=== PATIENT | male | born 1940 | race African-American/Black ===

== ENCOUNTER 2021-07-08 22:31 | Inpatient (IN) | payer MEDICARE, OTHER ==
[~2021-07-08] VITALS: Ht 188 cm; Wt 75.3 kg
[~2021-07-08 22:31] MED LIST: *NO ASPIRIN X 24 HOURS XX SCH; ETOMIDATE 2MG/ML 10ML VIAL IV ONE; SUCCINYLCHOLINE CHLORIDE 200MG/10ML IV ONE
[2021-07-08] MEDS ORDERED: ETOMIDATE 2MG/ML 10ML VIAL IV ONE (23:15)
[2021-07-08] MEDS ORDERED: SUCCINYLCHOLINE CHLORIDE 200MG/10ML IV ONE (23:15)
[2021-07-08] MEDS ORDERED: IOHEXOL-350 100 ML BOTTLE ONE (23:34)
[2021-07-08 23:41] LABS: BASOPHILS % 0.5 % (0.0-2.0); EOSINOPHILS % 1.6 % (0.0-5.0); HEMATOCRIT. 38.2 % (42.0-52.0); HEMOGLOBIN. 12.7 g/dL (14.0-18.0); LYMPHOCYTES % 12.1 % (20.0-50.0); MEAN CORPUSCULAR HEMOGLOBIN 31.1 pg (28.0-32.0); MEAN CORPUSCULAR VOLUME 93.5 fL (80.0-94.0); MEAN PLATELET VOLUME 7.8 fl (7.4-10.4); MONOCYTES % 4.8 % (2.0-8.0); PLATELET 218 x1000/uL (130-400); RED BLOOD CELL COUNT 4.09 mill/uL (4.7-6.1); RED CELL DISTRIBUTION WIDTH 12.6 % (11.6-14.6)
[2021-07-09] VITALS (35 sets, daily range): BP systolic 81–159; BP diastolic 45–79
[2021-07-09 00:01] LABS: CHLORIDE 107 mEq/L (98-107)
[2021-07-09 00:05] LABS: ETHANOL BLOOD < 10 mg/dL
[2021-07-09] MEDS ORDERED: ALTEPLASE IV NR (00:15)
[2021-07-09] MEDS ORDERED: ALTEPLASE 100MG/VIAL IV NR (00:15)
[2021-07-09] MEDS ORDERED: CONTAINER EMPTY IV NR (00:15)
[2021-07-09] MEDS ORDERED: MIDAZOLAM HCL 2 MG/2 ML VIAL IV ONE (00:15)
[2021-07-09 00:56] LABS: BG BASE EXCESS 1.8 mmol/L (-2.0-2.0); BG CARBOXYHEMOGLOBIN 0.6 % (0.5-1.5); BG DEOXYHEMOGLOBIN 2.3 % (0.0-5.0); BG FRACTION INSPIRED OXYGEN 35; BG HCO3 ACT 28.5 mmol/L (22.0-26.0); BG METHEMOGLOBIN 0.3 % (0.0-1.5); BG OXYGEN SATURATION 97.7 % (92.0-98.5); BG OXYHEMOGLOBIN 96.8 % (94.0-97.0); BG PCO2 53.6 mmHg (35.0-45.0); BG PH 7.344 (7.350-7.450); BG PO2 101.4 mmHg (75.0-100.0); BG SAMPLE SITE RIGHT RADIAL; BG TOTAL HEMOGLOBIN 13.5 g/dL (12.0-18.0); BG VENT MODE VENT - AC
[2021-07-09] MEDS ORDERED: SODIUM CHLORIDE 0.9% 1,000 ML IV ONE ×2 (02:15→04:30)
[2021-07-09] MEDS ORDERED: IOHEXOL-300 100 ML BOTTLE ONE (03:15)
[2021-07-09] MEDS ORDERED: CEFTRIAXONE 1 G PREMIX 50 ML IV ONE (03:30)
[2021-07-09] MEDS ORDERED: DOXYCYCLINE HYCLATE 100 MG/VIAL IV ONE (03:30)
[2021-07-09] MEDS: MIDAZOLAM HCL 100 MG in SODIUM CHLORIDE 0.9% 100 ML IV PRN ×2 (03:44→17:19)
[2021-07-09] MEDS ORDERED: DOXYCYCLINE 100MG in DEXTROSE 5% WATER 100ML IV NR (04:00)
[2021-07-09 05:09] LABS: HEMATOCRIT 27.8 % (42.0-52.0); HEMOGLOBIN 9.2 g/dL (14.0-18.0)
[2021-07-09] MEDS ORDERED: ACETAMINOPHEN 650MG SUPP PR PRN (06:15)
[2021-07-09] MEDS: NOREPINEPHRINE 8 MG in DEXTROSE 5% WATER 250 ML IV PRN ×2 (06:55→11:01)
[2021-07-09] MEDS: DEXT 5%/0.45% NACL 1000ML 1,000 ML IV SCH ×2 (07:09→20:21)
[2021-07-09] MEDS: PANTOPRAZOLE SODIUM 40 MG/VIAL IV SCH (09:16)
[2021-07-09] MEDS ORDERED: PIPERACILLIN/TAZ 3.375G PREMIX 50 ML IV SCH (14:00)
[2021-07-09] MEDS: FENTANYL CITRATE 2,500 MCG in SODIUM CHLORIDE 0.9% 200 ML IV PRN (14:04)
[2021-07-09] MEDS ORDERED: IPRATROPIUM/ALBUTEROL 0.5-3(2.5)MG/3ML NEB HHN PRN (14:30)
[2021-07-09] MEDS: IPRATROPIUM/ALBUTEROL 0.5-3(2.5)MG/3ML NEB HHN SCH ×2 (14:54→21:28)
[2021-07-09 22:13] LABS: INR 1.2; PARTIAL THROMBOPLASTIN TIME 30.4 sec (23.4-31.0); PROTHROMBIN TIME 12.5 sec (9.6-11.0)
[2021-07-10] VITALS (99 sets, daily range): BP systolic 73–152; BP diastolic 40–89
[2021-07-10] MEDS: PIPERACILLIN/TAZOBACTAM 3.375G in DEXT 5% WATER 50ML IV SCH ×2 (00:03→06:25)
[2021-07-10] MEDS: NOREPINEPHRINE 8 MG in DEXTROSE 5% WATER 250 ML IV PRN (00:36)
[2021-07-10] MEDS: IPRATROPIUM/ALBUTEROL 0.5-3(2.5)MG/3ML NEB HHN SCH ×4 (02:17→20:01)
[2021-07-10 05:53] LABS: HEMATOCRIT. 25.9 % (42.0-52.0); HEMOGLOBIN. 8.7 g/dL (14.0-18.0); MEAN CORPUSCULAR HEMOGLOBIN 31.7 pg (28.0-32.0); MEAN PLATELET VOLUME 8.5 fl (7.4-10.4); PLATELET 155 x1000/uL (130-400); RED BLOOD CELL COUNT 2.76 mill/uL (4.7-6.1)
[2021-07-10 06:21] LABS: CHLORIDE 108 mEq/L (98-107)
[2021-07-10 06:38] LABS: LDL CHOLESTEROL 40 mg/dL (5-100)
[2021-07-10 06:40] LABS: HDL CHOLESTEROL 39 mg/dL (40-59)
[2021-07-10 08:10] LABS: BG BASE EXCESS -0.9 mmol/L (-2.0-2.0); BG CARBOXYHEMOGLOBIN 0.2 % (0.5-1.5); BG HCO3 ACT 21.1 mmol/L (22.0-26.0); BG METHEMOGLOBIN 0.3 % (0.0-1.5); BG OXYHEMOGLOBIN 98.5 % (94.0-97.0); BG PCO2 25.6 mmHg (35.0-45.0); BG PH 7.533 (7.350-7.450); BG PO2 155.7 mmHg (75.0-100.0); BG SAMPLE SITE RIGHT RADIAL; BG TOTAL HEMOGLOBIN 9.1 g/dL (12.0-18.0); BG VENT MODE VENT - AC
[2021-07-10] MEDS: PANTOPRAZOLE SODIUM 40 MG/VIAL IV SCH (08:46)
[2021-07-10] MEDS: DEXT 5%/0.45% NACL 1000ML 1,000 ML IV SCH (08:47)
[2021-07-10] MEDS: FENTANYL CITRATE 2,500 MCG in SODIUM CHLORIDE 0.9% 200 ML IV PRN (08:52)
[2021-07-10 10:05] LABS: PLATELET ESTIMATE NORMAL
[2021-07-10] MEDS: TAMSULOSIN HCL 0.4MG SR CAPSULE PO SCH (10:11)
[2021-07-10] MEDS: FINASTERIDE 5MG TABLET PO SCH (10:11)
[2021-07-10] MEDS: DEXT 5%/0.9% NACL 1,000 ML IV SCH ×2 (14:17→23:12)
[2021-07-10] MEDS: LORAZEPAM 2MG/ML CPJ IV PRN (20:11)
[2021-07-10] MEDS: PIPERACILLIN/TAZOBACTAM 3.375 G in DEXTROSE 5% WATER 50 ML IV SCH (21:59)
[2021-07-11] VITALS (92 sets, daily range): BP systolic 84–145; BP diastolic 47–70
[2021-07-11 01:05] LABS: HEMATOCRIT 28.6 % (42.0-52.0); HEMOGLOBIN 9.7 g/dL (14.0-18.0)
[2021-07-11 01:39] LABS: INR 1.2; PROTHROMBIN TIME 12.5 sec (9.6-11.0)
[2021-07-11] MEDS: FENTANYL CITRATE/PF 2,500 MCG in SODIUM CHLORIDE 0.9% 200 ML IV PRN ×2 (01:54→09:16)
[2021-07-11] MEDS: IPRATROPIUM/ALBUTEROL 0.5-3(2.5)MG/3ML NEB HHN SCH ×4 (02:26→20:56)
[2021-07-11 05:41] LABS: CHLORIDE 106 mEq/L (98-107)
[2021-07-11] MEDS: DEXT 5%/0.9% NACL 1,000 ML IV SCH ×3 (05:45→16:52)
[2021-07-11 05:53] LABS: PHOSPHORUS 3.2 mg/dL (2.5-4.9)
[2021-07-11] MEDS: PIPERACILLIN/TAZOBACTAM 3.375 G in DEXTROSE 5% WATER 50 ML IV SCH ×2 (09:14→20:48)
[2021-07-11] MEDS: PANTOPRAZOLE SODIUM 40 MG/VIAL IV SCH (09:14)
[2021-07-11] MEDS: TAMSULOSIN HCL 0.4MG SR CAPSULE PO SCH (09:15)
[2021-07-11] MEDS: FINASTERIDE 5MG TABLET PO SCH (09:15)
[2021-07-11 09:56] LABS: HEMATOCRIT. 24.6 % (42.0-52.0); MEAN CORPUSCULAR VOLUME 92.5 fL (80.0-94.0); PLATELET 118 x1000/uL (130-400); RED BLOOD CELL COUNT 2.66 mill/uL (4.7-6.1); RED CELL DISTRIBUTION WIDTH 13.7 % (11.6-14.6)
[2021-07-11 10:16] LABS: BG BASE EXCESS -1.9 mmol/L (-2.0-2.0); BG CARBOXYHEMOGLOBIN 0.3 % (0.5-1.5); BG DEOXYHEMOGLOBIN 1.4 % (0.0-5.0); BG FRACTION INSPIRED OXYGEN 35; BG HCO3 ACT 20.7 mmol/L (22.0-26.0); BG METHEMOGLOBIN 0.2 % (0.0-1.5); BG OXYGEN SATURATION 98.6 % (92.0-98.5); BG OXYHEMOGLOBIN 98.1 % (94.0-97.0); BG PCO2 27.8 mmHg (35.0-45.0); BG SAMPLE SITE RIGHT RADIAL; BG TOTAL HEMOGLOBIN 9.5 g/dL (12.0-18.0); BG VENT MODE VENT - AC
[2021-07-11] MEDS: LORAZEPAM 2MG/ML CPJ IV PRN ×2 (10:25→16:52)
[2021-07-11 16:23] LABS: PLATELET ESTIMATE DECREASED
[2021-07-11 16:33] LABS: BG BASE EXCESS -2.2 mmol/L (-2.0-2.0); BG CARBOXYHEMOGLOBIN 0.3 % (0.5-1.5); BG DEOXYHEMOGLOBIN 1.5 % (0.0-5.0); BG FRACTION INSPIRED OXYGEN 35; BG METHEMOGLOBIN 0.3 % (0.0-1.5); BG OXYGEN SATURATION 98.5 % (92.0-98.5); BG OXYHEMOGLOBIN 97.9 % (94.0-97.0); BG PCO2 41.3 mmHg (35.0-45.0); BG PH 7.364 (7.350-7.450); BG PO2 138.1 mmHg (75.0-100.0); BG SAMPLE SITE RIGHT RADIAL; BG TOTAL HEMOGLOBIN 10.6 g/dL (12.0-18.0); BG VENT MODE VENT - SIMV
[2021-07-11] MEDS: MORPHINE SULFATE 2 MG/ML CPJ (NOT FOR IM USE) IV PRN (16:52)
[2021-07-12] VITALS (52 sets, daily range): BP systolic 81–152; BP diastolic 45–83
[2021-07-12] MEDS: IPRATROPIUM/ALBUTEROL 0.5-3(2.5)MG/3ML NEB HHN SCH ×4 (01:10→20:52)
[2021-07-12 05:30] LABS: HEMATOCRIT. 22.7 % (42.0-52.0); HEMOGLOBIN. 7.7 g/dL (14.0-18.0); MEAN CORPUSCULAR HEMOGLOBIN 31.5 pg (28.0-32.0); RED BLOOD CELL COUNT 2.44 mill/uL (4.7-6.1); RED CELL DISTRIBUTION WIDTH 13.5 % (11.6-14.6)
[2021-07-12] MEDS: ONDANSETRON HCL 4MG/2ML INJ IV PRN (05:41)
[2021-07-12] MEDS: LORAZEPAM 2MG/ML CPJ IV PRN (05:41)
[2021-07-12] MEDS: MORPHINE SULFATE 2 MG/ML CPJ (NOT FOR IM USE) IV PRN (05:42)
[2021-07-12 07:41] LABS: PLATELET ESTIMATE NORMAL
[2021-07-12 07:42] LABS: MEAN PLATELET VOLUME 8.7 fl (7.4-10.4); PLATELET 133 x1000/uL (130-400)
[2021-07-12] MEDS: TAMSULOSIN HCL 0.4MG SR CAPSULE PO SCH ×2 (09:00→09:25)
[2021-07-12] MEDS: PIPERACILLIN/TAZOBACTAM 3.375 G in DEXTROSE 5% WATER 50 ML IV SCH ×2 (09:24→21:51)
[2021-07-12] MEDS: PANTOPRAZOLE SODIUM 40 MG/VIAL IV SCH (09:24)
[2021-07-12] MEDS: FINASTERIDE 5MG TABLET PO SCH (09:25)
[2021-07-12 09:33] LABS: BG BASE EXCESS -1.4 mmol/L (-2.0-2.0); BG CARBOXYHEMOGLOBIN 0.1 % (0.5-1.5); BG DEOXYHEMOGLOBIN 1.2 % (0.0-5.0); BG FRACTION INSPIRED OXYGEN 35; BG HCO3 ACT 23.7 mmol/L (22.0-26.0); BG METHEMOGLOBIN 0.3 % (0.0-1.5); BG OXYGEN SATURATION 98.8 % (92.0-98.5); BG OXYHEMOGLOBIN 98.4 % (94.0-97.0); BG PCO2 40.9 mmHg (35.0-45.0); BG PO2 145.9 mmHg (75.0-100.0); BG SAMPLE SITE RIGHT RADIAL; BG TOTAL HEMOGLOBIN 8.6 g/dL (12.0-18.0); BG TOTAL RESPIRATORY RATE 16 b/min; BG VENT MODE VENT - SIMV
[2021-07-12] MEDS: DEXT 5%/0.9% NACL 1,000 ML IV SCH ×2 (13:25→23:31)
[2021-07-13] VITALS (49 sets, daily range): BP systolic 107–189; BP diastolic 47–135
[2021-07-13] MEDS: LORAZEPAM 2MG/ML CPJ IV PRN ×4 (00:16→23:41)
[2021-07-13 05:23] LABS: BASOPHILS % 0.3 % (0.0-2.0); EOSINOPHILS % 2.6 % (0.0-5.0); HEMATOCRIT. 23.9 % (42.0-52.0); HEMOGLOBIN. 8.1 g/dL (14.0-18.0); LYMPHOCYTES % 8.1 % (20.0-50.0); MEAN CORPUSCULAR HEMOGLOBIN 31.6 pg (28.0-32.0); MEAN CORPUSCULAR VOLUME 93.6 fL (80.0-94.0); MEAN PLATELET VOLUME 8.3 fl (7.4-10.4); PLATELET 165 x1000/uL (130-400); RED BLOOD CELL COUNT 2.55 mill/uL (4.7-6.1); RED CELL DISTRIBUTION WIDTH 13.1 % (11.6-14.6)
[2021-07-13 06:15] LABS: PHOSPHORUS 4.4 mg/dL (2.5-4.9)
[2021-07-13] MEDS: DEXT 5%/0.9% NACL 1,000 ML IV SCH ×3 (07:44→23:41)
[2021-07-13] MEDS: IPRATROPIUM/ALBUTEROL 0.5-3(2.5)MG/3ML NEB HHN SCH ×4 (08:04→21:32)
[2021-07-13] MEDS: PIPERACILLIN/TAZOBACTAM 3.375 G in DEXTROSE 5% WATER 50 ML IV SCH ×2 (08:43→20:21)
[2021-07-13] MEDS: PANTOPRAZOLE SODIUM 40 MG/VIAL IV SCH (08:43)
[2021-07-13] MEDS: FINASTERIDE 5MG TABLET PO SCH (08:44)
[2021-07-13] MEDS: TAMSULOSIN HCL 0.4MG SR CAPSULE PO SCH (08:44)
[2021-07-13 09:15] LABS: BG BASE EXCESS -1.8 mmol/L (-2.0-2.0); BG CARBOXYHEMOGLOBIN 0.5 % (0.5-1.5); BG DEOXYHEMOGLOBIN 1.3 % (0.0-5.0); BG FRACTION INSPIRED OXYGEN 35; BG METHEMOGLOBIN 0.3 % (0.0-1.5); BG OXYGEN SATURATION 98.7 % (92.0-98.5); BG OXYHEMOGLOBIN 97.9 % (94.0-97.0); BG PCO2 38.8 mmHg (35.0-45.0); BG PO2 130.2 mmHg (75.0-100.0); BG SAMPLE SITE RIGHT RADIAL; BG TOTAL HEMOGLOBIN 8.1 g/dL (12.0-18.0); BG TOTAL RESPIRATORY RATE 9 b/min; BG VENT MODE VENT - SIMV
[2021-07-13 12:54] LABS: BG CARBOXYHEMOGLOBIN 0.2 % (0.5-1.5); BG DEOXYHEMOGLOBIN 1.8 % (0.0-5.0); BG FRACTION INSPIRED OXYGEN 35; BG HCO3 ACT 21.3 mmol/L (22.0-26.0); BG METHEMOGLOBIN 0.4 % (0.0-1.5); BG OXYGEN SATURATION 98.2 % (92.0-98.5); BG OXYHEMOGLOBIN 97.6 % (94.0-97.0); BG PCO2 34.9 mmHg (35.0-45.0); BG PH 7.404 (7.350-7.450); BG SAMPLE SITE RIGHT RADIAL; BG TOTAL HEMOGLOBIN 7.9 g/dL (12.0-18.0); BG VENT MODE VENT - CPAP
[2021-07-13] MEDS ORDERED: FENTANYL CITRATE/PF 2,500 MCG in DEXT 5% WATER 200 ML IV PRN (19:45)
[2021-07-14] VITALS (49 sets, daily range): BP systolic 141–195; BP diastolic 65–126
[2021-07-14] MEDS: IPRATROPIUM/ALBUTEROL 0.5-3(2.5)MG/3ML NEB HHN SCH ×4 (01:14→20:23)
[2021-07-14 05:32] LABS: BASOPHILS % 0.3 % (0.0-2.0); EOSINOPHILS % 2.1 % (0.0-5.0); HEMATOCRIT. 21.9 % (42.0-52.0); HEMOGLOBIN. 7.6 g/dL (14.0-18.0); LYMPHOCYTES % 8.1 % (20.0-50.0); MEAN CORPUSCULAR VOLUME 92.4 fL (80.0-94.0); MONOCYTES % 10.3 % (2.0-8.0); NEUTROPHILS % 79.2 % (40.0-76.0); PLATELET 186 x1000/uL (130-400); RED BLOOD CELL COUNT 2.38 mill/uL (4.7-6.1); RED CELL DISTRIBUTION WIDTH 13.1 % (11.6-14.6)
[2021-07-14] MEDS: DEXT 5%/0.9% NACL 1,000 ML IV SCH (07:22)
[2021-07-14] MEDS: DEXT 5%/0.2% NACL 1,000 ML IV SCH ×2 (07:31→13:30)
[2021-07-14] MEDS ORDERED: NALOXONE HCL 0.4MG/ML VIAL IV PRN (08:00)
[2021-07-14] MEDS ORDERED: KCL 20MEQ/100ML PREMIX 100 ML IV SCH (09:00)
[2021-07-14] MEDS: PIPERACILLIN/TAZOBACTAM 3.375 G in DEXTROSE 5% WATER 50 ML IV SCH ×2 (10:14→20:42)
[2021-07-14] MEDS: PANTOPRAZOLE SODIUM 40 MG/VIAL IV SCH (10:14)
[2021-07-14] MEDS: TAMSULOSIN HCL 0.4MG SR CAPSULE PO SCH (10:15)
[2021-07-14] MEDS: DILTIAZEM HCL 30MG TABLET PO SCH ×2 (10:15→17:05)
[2021-07-14] MEDS: FINASTERIDE 5MG TABLET PO SCH (10:19)
[2021-07-15] VITALS (43 sets, daily range): BP systolic 99–187; BP diastolic 57–108
[2021-07-15] MEDS: IPRATROPIUM/ALBUTEROL 0.5-3(2.5)MG/3ML NEB HHN SCH ×4 (00:01→20:09)
[2021-07-15] MEDS: DEXT 5%/0.2% NACL 1,000 ML IV SCH ×3 (00:28→16:21)
[2021-07-15] MEDS: DILTIAZEM HCL 30MG TABLET PO SCH ×2 (00:29→06:34)
[2021-07-15 04:52] LABS: HEMATOCRIT. 22.4 % (42.0-52.0); HEMOGLOBIN. 7.9 g/dL (14.0-18.0); MEAN CORPUSCULAR HEMOGLOBIN 32.3 pg (28.0-32.0); MEAN PLATELET VOLUME 7.8 fl (7.4-10.4); PLATELET 211 x1000/uL (130-400); RED BLOOD CELL COUNT 2.43 mill/uL (4.7-6.1); RED CELL DISTRIBUTION WIDTH 12.9 % (11.6-14.6)
[2021-07-15 05:08] LABS: CHLORIDE 115 mEq/L (98-107)
[2021-07-15 05:22] LABS: PHOSPHORUS 2.3 mg/dL (2.5-4.9)
[2021-07-15] MEDS ORDERED: POTASSIUM CHLORIDE 20MEQ/PACKET PO SCH (07:30)
[2021-07-15] MEDS: TAMSULOSIN HCL 0.4MG SR CAPSULE PO SCH (08:48)
[2021-07-15] MEDS: PANTOPRAZOLE SODIUM 40 MG/VIAL IV SCH (08:48)
[2021-07-15] MEDS: FINASTERIDE 5MG TABLET PO SCH (08:48)
[2021-07-15] MEDS ORDERED: POTASSIUM PHOS,M-BASIC-D-BASIC 20 MMOL in DEXT 5% WATER 243.3333 ML IV SCH (09:00)
[2021-07-15] MEDS ORDERED: MAGNESIUM 2 G PREMIX 50 ML IV SCH (09:00)
[2021-07-15 11:23] LABS: PLATELET ESTIMATE NORMAL
[2021-07-15] MEDS: DILTIAZEM HCL 60MG TABLET PO SCH ×3 (11:44→23:31)
[2021-07-15] MEDS: HYDRALAZINE 20MG/ML VIAL IV PRN (13:05)
[2021-07-15] MEDS: ONDANSETRON HCL 4MG/2ML INJ IV PRN (13:59)
[2021-07-15] MEDS: HYDRALAZINE HCL 25MG TABLET PO SCH ×2 (16:21→21:23)
[2021-07-16] VITALS (45 sets, daily range): BP systolic 117–164; BP diastolic 53–88
[2021-07-16] MEDS: IPRATROPIUM/ALBUTEROL 0.5-3(2.5)MG/3ML NEB HHN SCH ×4 (00:15→21:11)
[2021-07-16 05:54] LABS: HEMATOCRIT. 22.2 % (42.0-52.0); HEMOGLOBIN. 7.3 g/dL (14.0-18.0); MEAN CORPUSCULAR HEMOGLOBIN 30.5 pg (28.0-32.0); MEAN CORPUSCULAR VOLUME 92.3 fL (80.0-94.0); MEAN PLATELET VOLUME 7.9 fl (7.4-10.4); PLATELET 259 x1000/uL (130-400); RED CELL DISTRIBUTION WIDTH 12.8 % (11.6-14.6)
[2021-07-16 06:13] LABS: PHOSPHORUS 2.9 mg/dL (2.5-4.9)
[2021-07-16] MEDS: HYDRALAZINE HCL 25MG TABLET PO SCH ×3 (06:15→21:53)
[2021-07-16] MEDS: DILTIAZEM HCL 60MG TABLET PO SCH ×4 (06:15→23:15)
[2021-07-16 08:44] LABS: PLATELET ESTIMATE NORMAL
[2021-07-16] MEDS: PANTOPRAZOLE SODIUM 40 MG/VIAL IV SCH (09:18)
[2021-07-16] MEDS: FINASTERIDE 5MG TABLET PO SCH (09:18)
[2021-07-16] MEDS: TAMSULOSIN HCL 0.4MG SR CAPSULE PO SCH (09:18)
[2021-07-16] MEDS: DEXT 5%/0.2% NACL 1,000 ML IV SCH ×3 (09:18→17:27)
[2021-07-16] MEDS: HYDRALAZINE 20MG/ML VIAL IV PRN (14:15)
[2021-07-16] MEDS ORDERED: ACETAMINOPHEN 650MG/20.3ML UDC PO PRN (21:30)
[2021-07-17] VITALS (12 sets, daily range): BP systolic 113–154; BP diastolic 51–77
[2021-07-17] MEDS: IPRATROPIUM/ALBUTEROL 0.5-3(2.5)MG/3ML NEB HHN SCH ×4 (01:26→20:34)
[2021-07-17] MEDS: DILTIAZEM HCL 60MG TABLET PO SCH ×4 (05:05→23:55)
[2021-07-17] MEDS: DEXT 5%/0.2% NACL 1,000 ML IV SCH ×2 (05:16→13:38)
[2021-07-17] MEDS: HYDRALAZINE HCL 25MG TABLET PO SCH ×3 (05:16→22:28)
[2021-07-17 05:59] LABS: BASOPHILS % 0.3 % (0.0-2.0); HEMATOCRIT. 21.1 % (42.0-52.0); HEMOGLOBIN. 7.1 g/dL (14.0-18.0); LYMPHOCYTES % 9.7 % (20.0-50.0); MEAN CORPUSCULAR HEMOGLOBIN 30.8 pg (28.0-32.0); MEAN CORPUSCULAR VOLUME 91.8 fL (80.0-94.0); MEAN PLATELET VOLUME 7.8 fl (7.4-10.4); MONOCYTES % 10.8 % (2.0-8.0); NEUTROPHILS % 75.2 % (40.0-76.0); PLATELET 300 x1000/uL (130-400); RED BLOOD CELL COUNT 2.29 mill/uL (4.7-6.1); RED CELL DISTRIBUTION WIDTH 13.2 % (11.6-14.6)
[2021-07-17 06:50] LABS: CHLORIDE 111 mEq/L (98-107)
[2021-07-17 07:04] LABS: PHOSPHORUS 3.5 mg/dL (2.5-4.9)
[2021-07-17] MEDS: ACETYLCYSTEINE 100MG/ML 10% VIAL 4ML INH SCH (08:22)
[2021-07-17] MEDS: TAMSULOSIN HCL 0.4MG SR CAPSULE PO SCH (09:28)
[2021-07-17] MEDS: PANTOPRAZOLE SODIUM 40 MG/VIAL IV SCH (09:28)
[2021-07-17] MEDS: FINASTERIDE 5MG TABLET PO SCH (09:28)
[2021-07-17] MEDS: POTASSIUM CHLORIDE 20MEQ TABLET SR PO SCH (13:04)
[2021-07-18] VITALS (12 sets, daily range): BP systolic 130–144; BP diastolic 53–97
[2021-07-18] MEDS: DEXT 5%/0.2% NACL 1,000 ML IV SCH ×3 (01:32→21:46)
[2021-07-18] MEDS: IPRATROPIUM/ALBUTEROL 0.5-3(2.5)MG/3ML NEB HHN SCH ×3 (02:16→21:13)
[2021-07-18] MEDS: HYDRALAZINE HCL 25MG TABLET PO SCH ×3 (06:48→21:32)
[2021-07-18] MEDS: DILTIAZEM HCL 60MG TABLET PO SCH ×4 (06:48→23:21)
[2021-07-18] MEDS: POTASSIUM CHLORIDE 20MEQ TABLET SR PO SCH (08:43)
[2021-07-18] MEDS: PANTOPRAZOLE SODIUM 40 MG/VIAL IV SCH (08:43)
[2021-07-18] MEDS: FINASTERIDE 5MG TABLET PO SCH (08:44)
[2021-07-18] MEDS: TAMSULOSIN HCL 0.4MG SR CAPSULE PO SCH (08:44)
[2021-07-18 12:23] LABS: HEMATOCRIT. 21.7 % (42.0-52.0); HEMOGLOBIN. 7.4 g/dL (14.0-18.0); MEAN CORPUSCULAR HEMOGLOBIN 31.2 pg (28.0-32.0); MEAN CORPUSCULAR VOLUME 91.8 fL (80.0-94.0); MEAN PLATELET VOLUME 7.6 fl (7.4-10.4); PLATELET 386 x1000/uL (130-400); RED BLOOD CELL COUNT 2.37 mill/uL (4.7-6.1); RED CELL DISTRIBUTION WIDTH 13.3 % (11.6-14.6)
[2021-07-18 13:57] LABS: PLATELET ESTIMATE NORMAL
[2021-07-19] VITALS (12 sets, daily range): BP systolic 132–143; BP diastolic 60–78
[2021-07-19] MEDS: IPRATROPIUM/ALBUTEROL 0.5-3(2.5)MG/3ML NEB HHN SCH ×4 (02:04→21:02)
[2021-07-19] MEDS: HYDRALAZINE HCL 25MG TABLET PO SCH ×3 (05:40→22:59)
[2021-07-19] MEDS: DILTIAZEM HCL 60MG TABLET PO SCH ×4 (05:40→23:00)
[2021-07-19 06:41] LABS: CHLORIDE 110 mEq/L (98-107)
[2021-07-19 06:55] LABS: PHOSPHORUS 2.7 mg/dL (2.5-4.9)
[2021-07-19 07:06] LABS: BASOPHILS % 0.7 % (0.0-2.0); EOSINOPHILS % 3.2 % (0.0-5.0); HEMATOCRIT. 21.4 % (42.0-52.0); HEMOGLOBIN. 7.1 g/dL (14.0-18.0); LYMPHOCYTES % 11.9 % (20.0-50.0); MEAN CORPUSCULAR HEMOGLOBIN 30.9 pg (28.0-32.0); MEAN CORPUSCULAR VOLUME 92.5 fL (80.0-94.0); MEAN PLATELET VOLUME 7.5 fl (7.4-10.4); MONOCYTES % 8.5 % (2.0-8.0); NEUTROPHILS % 75.7 % (40.0-76.0); PLATELET 383 x1000/uL (130-400); RED BLOOD CELL COUNT 2.31 mill/uL (4.7-6.1); RED CELL DISTRIBUTION WIDTH 13.3 % (11.6-14.6)
[2021-07-19] MEDS: TAMSULOSIN HCL 0.4MG SR CAPSULE PO SCH (08:25)
[2021-07-19] MEDS: FINASTERIDE 5MG TABLET PO SCH (08:25)
[2021-07-19] MEDS: PANTOPRAZOLE SODIUM 40 MG/VIAL IV SCH (08:25)
[2021-07-19] MEDS: POTASSIUM CHLORIDE 20MEQ TABLET SR PO SCH (08:25)
[2021-07-19] MEDS: DEXT 5%/0.2% NACL 1,000 ML IV SCH ×2 (08:25→17:23)
[2021-07-20] VITALS (11 sets, daily range): BP systolic 121–150; BP diastolic 58–75
[2021-07-20] MEDS: DEXT 5%/0.2% NACL 1,000 ML IV SCH ×3 (03:00→22:14)
[2021-07-20] MEDS: IPRATROPIUM/ALBUTEROL 0.5-3(2.5)MG/3ML NEB HHN SCH ×4 (03:20→19:49)
[2021-07-20] MEDS: HYDRALAZINE HCL 25MG TABLET PO SCH ×3 (05:48→22:13)
[2021-07-20] MEDS: DILTIAZEM HCL 60MG TABLET PO SCH ×3 (05:48→18:00)
[2021-07-20 06:12] LABS: BASOPHILS % 0.4 % (0.0-2.0); EOSINOPHILS % 3.3 % (0.0-5.0); HEMATOCRIT. 22.1 % (42.0-52.0); HEMOGLOBIN. 7.5 g/dL (14.0-18.0); LYMPHOCYTES % 9.5 % (20.0-50.0); MEAN CORPUSCULAR HEMOGLOBIN 31.1 pg (28.0-32.0); MEAN CORPUSCULAR VOLUME 92.1 fL (80.0-94.0); MEAN PLATELET VOLUME 7.7 fl (7.4-10.4); MONOCYTES % 7.3 % (2.0-8.0); NEUTROPHILS % 79.5 % (40.0-76.0); PLATELET 442 x1000/uL (130-400); RED CELL DISTRIBUTION WIDTH 13.3 % (11.6-14.6)
[2021-07-20 06:34] LABS: CHLORIDE 110 mEq/L (98-107)
[2021-07-20] MEDS: PANTOPRAZOLE SODIUM 40 MG/VIAL IV SCH (08:42)
[2021-07-20] MEDS: POTASSIUM CHLORIDE 20MEQ TABLET SR PO SCH (08:42)
[2021-07-20] MEDS: TAMSULOSIN HCL 0.4MG SR CAPSULE PO SCH (08:42)
[2021-07-20] MEDS: FINASTERIDE 5MG TABLET PO SCH (08:42)
[2021-07-20] MEDS: ACETYLCYSTEINE 100MG/ML 10% VIAL 4ML INH SCH ×2 (08:48→14:10)
[2021-07-21] VITALS: BP 118/57
[2021-07-21] MEDS: IPRATROPIUM/ALBUTEROL 0.5-3(2.5)MG/3ML NEB HHN SCH ×5 (01:03→23:55)
[2021-07-21 04:00] VITALS: BP 149/74
[2021-07-21 07:02] LABS: BASOPHILS % 0.6 % (0.0-2.0); EOSINOPHILS % 3.2 % (0.0-5.0); HEMATOCRIT. 21.6 % (42.0-52.0); HEMOGLOBIN. 7.3 g/dL (14.0-18.0); LYMPHOCYTES % 12.1 % (20.0-50.0); MEAN CORPUSCULAR VOLUME 92.1 fL (80.0-94.0); MEAN PLATELET VOLUME 7.3 fl (7.4-10.4); MONOCYTES % 8.2 % (2.0-8.0); NEUTROPHILS % 75.9 % (40.0-76.0); PLATELET 449 x1000/uL (130-400); RED BLOOD CELL COUNT 2.35 mill/uL (4.7-6.1); RED CELL DISTRIBUTION WIDTH 13.2 % (11.6-14.6)
[2021-07-21 07:29] LABS: PHOSPHORUS 2.8 mg/dL (2.5-4.9)
[2021-07-21] MEDS: ACETYLCYSTEINE 100MG/ML 10% VIAL 4ML INH SCH ×2 (07:33→13:15)
[2021-07-21 08:00] VITALS: BP 148/73
[2021-07-21] MEDS: POTASSIUM CHLORIDE 20MEQ TABLET SR PO SCH (10:08)
[2021-07-21] MEDS: FINASTERIDE 5MG TABLET PO SCH (10:08)
[2021-07-21] MEDS: PANTOPRAZOLE SODIUM 40 MG/VIAL IV SCH (10:10)
[2021-07-21] MEDS: TAMSULOSIN HCL 0.4MG SR CAPSULE PO SCH (10:10)
[2021-07-21 12:00] VITALS: BP 144/77
[2021-07-21] MEDS: DILTIAZEM HCL 60MG TABLET PO SCH ×3 (12:00→16:23)
[2021-07-21] MEDS: HYDRALAZINE HCL 25MG TABLET PO SCH ×3 (14:00→21:49)
[2021-07-21 16:00] VITALS: BP 143/80
[2021-07-21] MEDS: DEXT 5%/0.2% NACL 1,000 ML IV SCH ×2 (16:30→17:59)
[2021-07-21 20:00] VITALS: BP 141/66
[2021-07-22] VITALS: BP 133/69
[2021-07-22] MEDS: DILTIAZEM HCL 60MG TABLET PO SCH ×4 (00:04→18:36)
[2021-07-22] MEDS: IPRATROPIUM/ALBUTEROL 0.5-3(2.5)MG/3ML NEB HHN SCH ×5 (01:01→20:32)
[2021-07-22] MEDS: DEXT 5%/0.2% NACL 1,000 ML IV SCH ×3 (02:38→22:24)
[2021-07-22 04:00] VITALS: BP 132/63
[2021-07-22 05:53] LABS: BASOPHILS % 0.8 % (0.0-2.0); EOSINOPHILS % 2.8 % (0.0-5.0); HEMATOCRIT. 22.4 % (42.0-52.0); HEMOGLOBIN. 7.5 g/dL (14.0-18.0); LYMPHOCYTES % 12.1 % (20.0-50.0); MEAN CORPUSCULAR HEMOGLOBIN 30.8 pg (28.0-32.0); MEAN PLATELET VOLUME 7.2 fl (7.4-10.4); MONOCYTES % 8.6 % (2.0-8.0); NEUTROPHILS % 75.7 % (40.0-76.0); PLATELET 484 x1000/uL (130-400); RED BLOOD CELL COUNT 2.44 mill/uL (4.7-6.1); RED CELL DISTRIBUTION WIDTH 13.4 % (11.6-14.6)
[2021-07-22 06:31] LABS: PHOSPHORUS 2.6 mg/dL (2.5-4.9)
[2021-07-22] MEDS: HYDRALAZINE HCL 25MG TABLET PO SCH ×3 (06:45→22:24)
[2021-07-22 08:00] VITALS: BP 150/73
[2021-07-22] MEDS: FINASTERIDE 5MG TABLET PO SCH (09:59)
[2021-07-22] MEDS: POTASSIUM CHLORIDE 20MEQ TABLET SR PO SCH (09:59)
[2021-07-22] MEDS: PANTOPRAZOLE SODIUM 40 MG/VIAL IV SCH (09:59)
[2021-07-22] MEDS: TAMSULOSIN HCL 0.4MG SR CAPSULE PO SCH (09:59)
[2021-07-22 12:00] VITALS: BP 124/63
[2021-07-22 16:00] VITALS: BP 130/80
[2021-07-22 20:00] VITALS: BP 130/72
[2021-07-23] VITALS (8 sets, daily range): BP systolic 112–146; BP diastolic 47–89
[2021-07-23] MEDS: DILTIAZEM HCL 60MG TABLET PO SCH ×4 (00:08→17:09)
[2021-07-23] MEDS: IPRATROPIUM/ALBUTEROL 0.5-3(2.5)MG/3ML NEB HHN SCH ×4 (01:05→20:44)
[2021-07-23] MEDS: HYDRALAZINE HCL 25MG TABLET PO SCH ×3 (06:39→22:37)
[2021-07-23 07:07] LABS: BASOPHILS % 0.4 % (0.0-2.0); EOSINOPHILS % 2.9 % (0.0-5.0); HEMATOCRIT. 23.1 % (42.0-52.0); LYMPHOCYTES % 11.7 % (20.0-50.0); MEAN CORPUSCULAR HEMOGLOBIN 31.6 pg (28.0-32.0); MEAN CORPUSCULAR VOLUME 91.1 fL (80.0-94.0); MEAN PLATELET VOLUME 7.4 fl (7.4-10.4); MONOCYTES % 9.7 % (2.0-8.0); NEUTROPHILS % 75.3 % (40.0-76.0); PLATELET 504 x1000/uL (130-400); RED BLOOD CELL COUNT 2.53 mill/uL (4.7-6.1); RED CELL DISTRIBUTION WIDTH 13.2 % (11.6-14.6)
[2021-07-23 07:31] LABS: PHOSPHORUS 2.7 mg/dL (2.5-4.9)
[2021-07-23] MEDS: DEXT 5%/0.2% NACL 1,000 ML IV SCH ×2 (09:05→18:05)
[2021-07-23] MEDS: POTASSIUM CHLORIDE 20MEQ TABLET SR PO SCH (09:06)
[2021-07-23] MEDS: TAMSULOSIN HCL 0.4MG SR CAPSULE PO SCH (09:06)
[2021-07-23] MEDS: PANTOPRAZOLE SODIUM 40 MG/VIAL IV SCH (09:06)
[2021-07-23] MEDS: FINASTERIDE 5MG TABLET PO SCH (09:06)
[2021-07-23] MEDS ORDERED: LACTULOSE 20G/30ML UDC PO PRN (18:30)
[2021-07-24] VITALS (7 sets, daily range): BP systolic 125–146; BP diastolic 53–72
[2021-07-24] MEDS: DILTIAZEM HCL 60MG TABLET PO SCH ×4 (00:15→17:49)
[2021-07-24] MEDS: IPRATROPIUM/ALBUTEROL 0.5-3(2.5)MG/3ML NEB HHN SCH ×4 (01:34→20:16)
[2021-07-24] MEDS: DEXT 5%/0.2% NACL 1,000 ML IV SCH ×2 (02:38→15:18)
[2021-07-24] MEDS: HYDRALAZINE HCL 25MG TABLET PO SCH ×3 (05:29→22:04)
[2021-07-24 06:47] LABS: BASOPHILS % 0.9 % (0.0-2.0); EOSINOPHILS % 2.7 % (0.0-5.0); HEMATOCRIT. 22.1 % (42.0-52.0); HEMOGLOBIN. 7.8 g/dL (14.0-18.0); LYMPHOCYTES % 13.4 % (20.0-50.0); MEAN CORPUSCULAR HEMOGLOBIN 32.2 pg (28.0-32.0); MEAN CORPUSCULAR VOLUME 91.5 fL (80.0-94.0); MEAN PLATELET VOLUME 7.6 fl (7.4-10.4); MONOCYTES % 10.8 % (2.0-8.0); NEUTROPHILS % 72.2 % (40.0-76.0); PHOSPHORUS 2.9 mg/dL (2.5-4.9); PLATELET 496 x1000/uL (130-400); RED BLOOD CELL COUNT 2.42 mill/uL (4.7-6.1); RED CELL DISTRIBUTION WIDTH 13.1 % (11.6-14.6)
[2021-07-24] MEDS: PANTOPRAZOLE SODIUM 40 MG/VIAL IV SCH (08:45)
[2021-07-24] MEDS: TAMSULOSIN HCL 0.4MG SR CAPSULE PO SCH (08:46)
[2021-07-24] MEDS: POTASSIUM CHLORIDE 20MEQ TABLET SR PO SCH (08:46)
[2021-07-24] MEDS: FINASTERIDE 5MG TABLET PO SCH (08:47)
[2021-07-25] VITALS: BP 130/63
[2021-07-25] MEDS: DILTIAZEM HCL 60MG TABLET PO SCH ×3 (00:39→12:11)
[2021-07-25] MEDS: DEXT 5%/0.2% NACL 1,000 ML IV SCH (00:40)
[2021-07-25] MEDS: IPRATROPIUM/ALBUTEROL 0.5-3(2.5)MG/3ML NEB HHN SCH ×2 (02:07→08:47)
[2021-07-25 04:00] VITALS: BP 118/56
[2021-07-25] MEDS: HYDRALAZINE HCL 25MG TABLET PO SCH (05:39)
[2021-07-25 06:32] LABS: BASOPHILS % 0.9 % (0.0-2.0); EOSINOPHILS % 3.4 % (0.0-5.0); HEMATOCRIT. 22.9 % (42.0-52.0); HEMOGLOBIN. 7.9 g/dL (14.0-18.0); LYMPHOCYTES % 13.7 % (20.0-50.0); MEAN CORPUSCULAR HEMOGLOBIN 31.7 pg (28.0-32.0); MEAN CORPUSCULAR VOLUME 91.6 fL (80.0-94.0); MEAN PLATELET VOLUME 7.6 fl (7.4-10.4); MONOCYTES % 10.1 % (2.0-8.0); NEUTROPHILS % 71.9 % (40.0-76.0); PLATELET 461 x1000/uL (130-400); RED CELL DISTRIBUTION WIDTH 13.5 % (11.6-14.6)
[2021-07-25 07:13] LABS: PHOSPHORUS 2.7 mg/dL (2.5-4.9)
[2021-07-25 08:00] VITALS: BP 128/58
[2021-07-25] MEDS: FINASTERIDE 5MG TABLET PO SCH (08:43)
[2021-07-25] MEDS: PANTOPRAZOLE SODIUM 40 MG/VIAL IV SCH (08:43)
[2021-07-25] MEDS: POTASSIUM CHLORIDE 20MEQ TABLET SR PO SCH (08:43)
[2021-07-25] MEDS: TAMSULOSIN HCL 0.4MG SR CAPSULE PO SCH (08:43)
[2021-07-25 10:00] VITALS: BP 126/78
[2021-07-25 12:00] VITALS: BP 126/67
== END 2021-07-25 13:00 | DRG 207 ==
LOC: ER 22:31 → EDBEDREQSVC 07-09 00:08 → EDBEDREQDT 07-09 00:08 → EDBEDREQTM 07-09 00:08 → MICUSO 07-09 00:11 → EDBEDREQ 07-09 00:19 → EDBEDREQTM 07-09 00:19 → MICUSO 07-09 14:30 → 5EST 07-16 16:43
PROVIDERS: ADMIT Hospitalist; ATTEND Hospitalist
PROC: 5A1955Z Respiratory Ventilation, Greater than 96 Consecutive Hours (ICD-10-PCS; principal; 2021-07-09)
PROC: 3E03317 Introduction of Other Thrombolytic into Peripheral Vein, Percutaneous Approach (ICD-10-PCS; 2021-07-09)
PROC: 0BH17EZ Insertion of Endotracheal Airway into Trachea, Via Natural or Artificial Opening (ICD-10-PCS; 2021-07-09)
PROC: 4A10X4Z Monitoring of Central Nervous Electrical Activity, External Approach (ICD-10-PCS; 2021-07-10)
PROC: 30233N1 Transfusion of Nonautologous Red Blood Cells into Peripheral Vein, Percutaneous Approach (ICD-10-PCS; 2021-07-10)
PROC: 05HY33Z Insertion of Infusion Device into Upper Vein, Percutaneous Approach (ICD-10-PCS; 2021-07-10)
PROC: B54MZZA Ultrasonography of Right Upper Extremity Veins, Guidance (ICD-10-PCS; 2021-07-10)
DX: J96.00 Acute respiratory failure, unspecified whether with hypoxia or hypercapnia (principal); I63.9 Cerebral infarction, unspecified; J69.0 Pneumonitis due to inhalation of food and vomit; R57.8 Other shock; G81.91 Hemiplegia, unspecified affecting right dominant side; G93.40 Encephalopathy, unspecified; D62 Acute posthemorrhagic anemia; N17.9 Acute kidney failure, unspecified; C79.51 Secondary malignant neoplasm of bone; R47.01 Aphasia; I77.9 Disorder of arteries and arterioles, unspecified; E04.2 Nontoxic multinodular goiter; N13.9 Obstructive and reflux uropathy, unspecified; Z20.822 Contact with and (suspected) exposure to COVID-19; K80.20 Calculus of gallbladder without cholecystitis without obstruction; N18.9 Chronic kidney disease, unspecified; R29.716 NIHSS score 16; N32.0 Bladder-neck obstruction; E87.6 Hypokalemia; C61 Malignant neoplasm of prostate; R31.0 Gross hematuria; E83.42 Hypomagnesemia; I12.9 Hypertensive chronic kidney disease with stage 1 through stage 4 chronic kidney disease, or unspecified chronic kidney disease; M85.88 Other specified disorders of bone density and structure, other site; N40.1 Benign prostatic hyperplasia with lower urinary tract symptoms; Z78.1 Physical restraint status; Z82.49 Family history of ischemic heart disease and other diseases of the circulatory system
CPT/HCPCS: 36415; 36600; 70496; 70498; 70551; 71045; 74177; 76770; 76937; 80048; 80053; 80061; 80320; 82375; 82805; 82962; 83735; 84100; 84145; 84153; 84484; 85014; 85018; 85025; 85049; 85384; 86850; 86900; 86920; 87070; 87426; 92610; 93005; 93970; 94003; 94640; 95816; 97162; 97166; 99291; A6261; C1725; C9113; J0330; J0360; J0696; J2060; J2250; J2270; J2405; J2543; J2997; J3010; J3475; J3480; J3490; J7030; J7042; J7050; J7060; J7070; J7608; P9016; Q9967; G0103; G0480